=== PATIENT | male | born 1935 | race Caucasian/White ===

== ENCOUNTER → 2017-09-03 | Outpatient (CLI) | payer MEDICARE, OTHER | END | disposition home or self-care (01) | LOC: HKI 15:00 | DX: M16.11 Unilateral primary osteoarthritis, right hip (principal) | CPT/HCPCS: 73502 ==

== ENCOUNTER 2017-10-04 16:22 | Observation (INO) | payer MEDICARE, OTHER ==
[2017-10-04 16:57] LABS: ADD MAN DIFF? NO
[2017-10-04 17:04] LABS: WHITE BLOOD COUNT 8.3 10^3/ul (4.8-10.8)
[2017-10-04 17:04] LABS: BASOPHILS % 0.5 % (0.0-2.0); EOSINOPHILS % 0.5 % (0.0-7.0); HEMATOCRIT 43.2 % (42.0-52.0); HEMOGLOBIN 14.6 g/dl (14.0-18.0); LYMPHOCYTES # 1.7 10^3/ul (0.8-2.9); LYMPHOCYTES % 20.3 % (15.0-51.0); MEAN CORPUSCULAR HEMOGLOBIN 30.9 pg (29.0-33.0); MEAN CORPUSCULAR HGB CONC 33.8 g/dl (32.0-37.0); MEAN CORPUSCULAR VOLUME 91.5 fl (82.0-101.0); MEAN PLATELET VOLUME 9.6 fl (7.4-10.4); MONOCYTE # 0.7 10^3/ul (0.3-0.9); MONOCYTES % 8.4 % (0.0-11.0); NEUTROPHIL # 5.8 10^3/ul (1.6-7.5); NEUTROPHILS % 69.9 % (39.0-77.0); PLATELET COUNT 258 10^3/UL (140-415); RED BLOOD COUNT 4.72 10^6/ul (4.70-6.10); RED CELL DISTRIBUTION WIDTH 14.1 % (11.5-14.5)
[2017-10-04 17:16] LABS: INR 1.02; PROTIME 13.5 Sec (11.9-14.9); PT RATIO 1.1
[2017-10-04 17:17] LABS: PARTIAL THROMBOPLASTIN TIME 32.1 Sec (25.0-35.0)
[2017-10-04 17:33] LABS: ALANINE AMINOTRANSFERASE 30 IU/L (13-69); ALBUMIN 4.2 g/dl (3.3-4.9); ALKALINE PHOSPHATASE 71 IU/L (42-121); ANION GAP 15 (8-16); ASPARTATE AMINO TRANSFERASE 34 IU/L (15-46); BILIRUBIN,INDIRECT 0.5 mg/dl (0-1.1); BILIRUBIN,TOTAL 0.5 mg/dl (0.2-1.3); BLOOD UREA NITROGEN 24 mg/dl (7-20); CALCIUM 8.9 mg/dl (8.4-10.2); CARBON DIOXIDE 24 mmol/L (21-31); CHLORIDE 108 mmol/L (97-110); CREATININE 0.98 mg/dl (0.61-1.24); GLUCOSE 128 mg/dl (70-220); SODIUM 143 mmol/L (135-144)
[2017-10-04 17:43] LABS: TROPONIN-I < 0.012 ng/ml (0.00-0.12)
[2017-10-04] MEDS: DEXTROSE 5%-0.45% NACL 1,000 ML IV (21:37)
[2017-10-04] MEDS: ZOLPIDEM 5 MG TAB PO (23:06)
[2017-10-04] MEDS: ONDANSETRON 4 MG INJ IV (23:47)
[2017-10-05 05:17] LABS: WHITE BLOOD COUNT 6.3 10^3/ul (4.8-10.8)
[2017-10-05 05:17] LABS: ABNORMAL IP MESSAGE 1; HEMATOCRIT 34.3 % (42.0-52.0); HEMOGLOBIN 11.6 g/dl (14.0-18.0); MEAN CORPUSCULAR HEMOGLOBIN 31.1 pg (29.0-33.0); MEAN CORPUSCULAR HGB CONC 33.8 g/dl (32.0-37.0); MEAN PLATELET VOLUME 9.8 fl (7.4-10.4); PLATELET COUNT 226 10^3/UL (140-415); POSITIVE DIFF @See below; RED BLOOD COUNT 3.73 10^6/ul (4.70-6.10); RED CELL DISTRIBUTION WIDTH 13.9 % (11.5-14.5)
[2017-10-05 05:35] LABS: ADD MAN DIFF? YES
[2017-10-05 05:47] LABS: ANION GAP 14 (8-16); BLOOD UREA NITROGEN 22 mg/dl (7-20); CALCIUM 8.5 mg/dl (8.4-10.2); CARBON DIOXIDE 25 mmol/L (21-31); CHLORIDE 107 mmol/L (97-110); CREATININE 0.88 mg/dl (0.61-1.24); GLUCOSE 118 mg/dl (70-220); MAGNESIUM 2.1 mg/dl (1.7-2.5); POTASSIUM 4.2 mmol/L (3.5-5.1); SODIUM 142 mmol/L (135-144)
[2017-10-05 05:57] LABS: T4 (THYROXINE) 6.7 ug/dl (5.5-11.0)
[2017-10-05 06:10] LABS: THYROID STIMULATING HORMONE 0.617 MIU/L (0.465-4.680)
[2017-10-05 07:12] LABS: BASOPHILS % 0.5 % (0.0-2.0); LYMPHOCYTES % 25.7 % (15.0-51.0); MONOCYTES % 9.3 % (0.0-11.0)
[2017-10-05] MEDS: POLYETHYLENE GLYCOL 17 GM PACKET PO (08:10)
[2017-10-05 09:02] LABS: EOSINOPHILS # 0.1 10^3/ul (0.0-0.5); EOSINOPHILS % (M) 2 % (0.0-7.0); LYMPHOCYTES # 1.8 10^3/ul (0.8-2.9); LYMPHOCYTES #M 1.8 10^3/ul (0.8-2.9); LYMPHOCYTES % (M) 29 % (15-51); MONOCYTE # 0.4 10^3/ul (0.3-0.9); MONOCYTE #M 0.4 10^3/ul (0.3-0.9); MONOCYTES % (M) 7 % (0-11); SEGMENTED NEUTROPHILS (M) % 62 % (39-77)
[2017-10-05 09:03] LABS: PLATELET ESTIMATE NORMAL
[2017-10-05 17:09] LABS: ADD MAN DIFF? NO
[2017-10-05 17:12] LABS: BASOPHILS % 0.6 % (0.0-2.0); EOSINOPHILS # 0.1 10^3/ul (0.0-0.5); EOSINOPHILS % 1.1 % (0.0-7.0); HEMATOCRIT 33.2 % (42.0-52.0); HEMOGLOBIN 11.1 g/dl (14.0-18.0); LYMPHOCYTES # 1.8 10^3/ul (0.8-2.9); LYMPHOCYTES % 27.1 % (15.0-51.0); MEAN CORPUSCULAR HEMOGLOBIN 30.9 pg (29.0-33.0); MEAN CORPUSCULAR HGB CONC 33.4 g/dl (32.0-37.0); MEAN CORPUSCULAR VOLUME 92.5 fl (82.0-101.0); MEAN PLATELET VOLUME 9.7 fl (7.4-10.4); MONOCYTE # 0.7 10^3/ul (0.3-0.9); MONOCYTES % 10.5 % (0.0-11.0); NEUTROPHILS % 60.5 % (39.0-77.0); PLATELET COUNT 217 10^3/UL (140-415); RED BLOOD COUNT 3.59 10^6/ul (4.70-6.10); RED CELL DISTRIBUTION WIDTH 13.7 % (11.5-14.5)
[2017-10-05 17:12] LABS: WHITE BLOOD COUNT 6.6 10^3/ul (4.8-10.8)
[2017-10-05] MEDS: DEXTROSE 5%-0.45% NACL 1,000 ML IV (17:33)
[2017-10-05] MEDS: POLYETHYLENE GLYCOL 3350 119 GM POWDER PO (18:07)
[2017-10-05] MEDS: ZOLPIDEM 5 MG TAB PO (22:03)
[2017-10-06 05:51] LABS: ADD MAN DIFF? NO
[2017-10-06 05:55] LABS: ABNORMAL IP MESSAGE 1; BASOPHILS % 0.5 % (0.0-2.0); EOSINOPHILS # 0.5 10^3/ul (0.0-0.5); EOSINOPHILS % 8.4 % (0.0-7.0); HEMATOCRIT 30.5 % (42.0-52.0); HEMOGLOBIN 10.2 g/dl (14.0-18.0); LYMPHOCYTES # 1.7 10^3/ul (0.8-2.9); LYMPHOCYTES % 28.4 % (15.0-51.0); MEAN CORPUSCULAR HEMOGLOBIN 31.2 pg (29.0-33.0); MEAN CORPUSCULAR HGB CONC 33.4 g/dl (32.0-37.0); MEAN CORPUSCULAR VOLUME 93.3 fl (82.0-101.0); MONOCYTE # 0.6 10^3/ul (0.3-0.9); MONOCYTES % 10.9 % (0.0-11.0); NEUTROPHILS % 51.6 % (39.0-77.0); PLATELET COUNT 211 10^3/UL (140-415); POSITIVE DIFF @See below; RED BLOOD COUNT 3.27 10^6/ul (4.70-6.10); RED CELL DISTRIBUTION WIDTH 13.6 % (11.5-14.5)
[2017-10-06 05:55] LABS: WHITE BLOOD COUNT 5.8 10^3/ul (4.8-10.8)
[2017-10-06] MEDS: POLYETHYLENE GLYCOL 3350 119 GM POWDER PO (06:30)
[2017-10-06 06:54] LABS: ANION GAP 12 (8-16); BLOOD UREA NITROGEN 14 mg/dl (7-20); CALCIUM 8.1 mg/dl (8.4-10.2); CARBON DIOXIDE 26 mmol/L (21-31); CHLORIDE 110 mmol/L (97-110); CREATININE 0.84 mg/dl (0.61-1.24); GLUCOSE 92 mg/dl (70-220); POTASSIUM 3.8 mmol/L (3.5-5.1); SODIUM 144 mmol/L (135-144)
[2017-10-06] MEDS: POLYETHYLENE GLYCOL 17 GM PACKET PO (09:00)
[2017-10-06] MEDS: DEXTROSE 5%-0.45% NACL 1,000 ML IV (11:02)
[2017-10-06] MEDS: POTASSIUM CHLORIDE 40 MEQ in DEXTROSE 5%-0.45% NACL 1,000 ML IV (16:40)
[2017-10-06] MEDS: LIDOCAINE 2% (SDV) 5 ML INJ (17:29)
[2017-10-06] MEDS: PROPOFOL 40 ML (17:29)
[2017-10-06] MEDS: MIDAZOLAM 1 MG/ML 2 ML INJ (17:29)
[2017-10-06] MEDS: FLUMAZENIL 0.5 MG INJ (17:29)
[2017-10-06] MEDS: ZOLPIDEM 5 MG TAB PO (21:29)
[2017-10-07] MEDS: ACETAMINOPHEN 325 MG TAB PO (00:48)
[2017-10-07 05:48] LABS: ADD MAN DIFF? NO
[2017-10-07 05:53] LABS: BASOPHILS % 0.6 % (0.0-2.0); EOSINOPHILS # 0.1 10^3/ul (0.0-0.5); EOSINOPHILS % 2.4 % (0.0-7.0); HEMATOCRIT 28.1 % (42.0-52.0); HEMOGLOBIN 9.7 g/dl (14.0-18.0); LYMPHOCYTES # 1.5 10^3/ul (0.8-2.9); LYMPHOCYTES % 29.9 % (15.0-51.0); MEAN CORPUSCULAR HEMOGLOBIN 31.9 pg (29.0-33.0); MEAN CORPUSCULAR HGB CONC 34.5 g/dl (32.0-37.0); MEAN CORPUSCULAR VOLUME 92.4 fl (82.0-101.0); MEAN PLATELET VOLUME 10.1 fl (7.4-10.4); MONOCYTE # 0.7 10^3/ul (0.3-0.9); MONOCYTES % 13.2 % (0.0-11.0); NEUTROPHIL # 2.7 10^3/ul (1.6-7.5); NEUTROPHILS % 53.5 % (39.0-77.0); PLATELET COUNT 201 10^3/UL (140-415); RED BLOOD COUNT 3.04 10^6/ul (4.70-6.10); RED CELL DISTRIBUTION WIDTH 13.5 % (11.5-14.5)
[2017-10-07 06:12] LABS: ANION GAP 12 (8-16); BLOOD UREA NITROGEN 12 mg/dl (7-20); CALCIUM 8.5 mg/dl (8.4-10.2); CARBON DIOXIDE 27 mmol/L (21-31); CHLORIDE 110 mmol/L (97-110); CREATININE 0.84 mg/dl (0.61-1.24); GLUCOSE 86 mg/dl (70-220); SODIUM 145 mmol/L (135-144)
[2017-10-07 06:24] LABS: POTASSIUM 3.8 mmol/L (3.5-5.1)
[2017-10-07] MEDS: POLYETHYLENE GLYCOL 17 GM PACKET PO (08:49)
[2017-10-07] MEDS: POTASSIUM CHLORIDE (SR) 20 MEQ TAB PO (11:46)
== END 2017-10-07 11:50 | disposition home or self-care (01) ==
LOC: E/R 16:22 → MS1 17:51
DX: K92.2 Gastrointestinal hemorrhage, unspecified (principal); K64.8 Other hemorrhoids; K57.30 Diverticulosis of large intestine without perforation or abscess without bleeding; E78.5 Hyperlipidemia, unspecified; M54.12 Radiculopathy, cervical region; M16.0 Bilateral primary osteoarthritis of hip; Z87.820 Personal history of traumatic brain injury; Z85.46 Personal history of malignant neoplasm of prostate
CPT/HCPCS: 36415; 80048; 80053; 83735; 84436; 84443; 84484; 85025; 85610; 85730; 86850; 86900; 86901; 93005; 99217; 99285-25

== ENCOUNTER → 2017-11-05 | Outpatient (CLI) | payer MEDICARE, OTHER | END | disposition home or self-care (01) | LOC: HKI 13:28 | DX: Z47.1 Aftercare following joint replacement surgery (principal); Z01.818 Encounter for other preprocedural examination; Z96.641 Presence of right artificial hip joint | CPT/HCPCS: G0463 ==

== ENCOUNTER → 2017-11-05 | Outpatient (CLI) | payer MEDICARE, OTHER ==
[2017-11-05 15:16] LABS: ADD MAN DIFF? NO
[2017-11-05 15:19] LABS: BASOPHILS % 0.5 % (0.0-2.0); EOSINOPHILS # 0.1 10^3/ul (0.0-0.5); EOSINOPHILS % 1.5 % (0.0-7.0); HEMATOCRIT 44.2 % (42.0-52.0); HEMOGLOBIN 15.1 g/dl (14.0-18.0); LYMPHOCYTES # 2.6 10^3/ul (0.8-2.9); LYMPHOCYTES % 36.1 % (15.0-51.0); MEAN CORPUSCULAR HEMOGLOBIN 31.9 pg (29.0-33.0); MEAN CORPUSCULAR HGB CONC 34.2 g/dl (32.0-37.0); MEAN CORPUSCULAR VOLUME 93.2 fl (82.0-101.0); MEAN PLATELET VOLUME 9.2 fl (7.4-10.4); MONOCYTE # 0.7 10^3/ul (0.3-0.9); MONOCYTES % 9.5 % (0.0-11.0); NEUTROPHIL # 3.8 10^3/ul (1.6-7.5); NEUTROPHILS % 52.3 % (39.0-77.0); PLATELET COUNT 231 10^3/UL (140-415); RED BLOOD COUNT 4.74 10^6/ul (4.70-6.10); RED CELL DISTRIBUTION WIDTH 13.8 % (11.5-14.5)
[2017-11-05 15:19] LABS: WHITE BLOOD COUNT 7.3 10^3/ul (4.8-10.8)
[2017-11-05 15:21] LABS: ADD UMIC NO; UR ASCORBIC ACID 40 mg/dL (NEGATIVE); UR BILIRUBIN (Dip) NEGATIVE (NEGATIVE); UR BLOOD (Dip) NEGATIVE (NEGATIVE); UR CLARITY CLEAR (CLEAR); UR COLOR YELLOW (YELLOW); UR GLUCOSE (Dip) NEGATIVE (NEGATIVE); UR KETONES (Dip) NEGATIVE (NEGATIVE); UR LEUKOCYTE ESTERASE (Dip) NEGATIVE Leu/ul (NEGATIVE); UR NITRITE (Dip) NEGATIVE (NEGATIVE); UR SPECIFIC GRAVITY (Dip) 1.023 (1.003-1.030); UR TOTAL PROTEIN (Dip) NEGATIVE (NEGATIVE); UR UROBILINOGEN (Dip) 2+ mg/dL (NEGATIVE)
[2017-11-05 15:36] LABS: ALANINE AMINOTRANSFERASE 25 IU/L (13-69); ALBUMIN 4.6 g/dl (3.3-4.9); ALBUMIN/GLOBULIN RATIO 1.53; ALKALINE PHOSPHATASE 61 IU/L (42-121); ANION GAP 14 (8-16); ASPARTATE AMINO TRANSFERASE 22 IU/L (15-46); BILIRUBIN,INDIRECT 0.6 mg/dl (0-1.1); BILIRUBIN,TOTAL 0.6 mg/dl (0.2-1.3); BLOOD UREA NITROGEN 16 mg/dl (7-20); CALCIUM 9.5 mg/dl (8.4-10.2); CARBON DIOXIDE 29 mmol/L (21-31); CHLORIDE 107 mmol/L (97-110); CREATININE 0.97 mg/dl (0.61-1.24); GLUCOSE 96 mg/dl (70-220); POTASSIUM 4.4 mmol/L (3.5-5.1); SODIUM 146 mmol/L (135-144); TOTAL PROTEIN 7.6 g/dl (6.1-8.1)
[2017-11-05 15:39] LABS: INR 0.92; PROTIME 12.4 Sec (11.9-14.9)
[2017-11-05 15:40] LABS: PARTIAL THROMBOPLASTIN TIME 31.5 Sec (25.0-35.0)
== END | disposition home or self-care (01) ==
LOC: LAB 14:37
DX: D64.9 Anemia, unspecified (principal); N39.0 Urinary tract infection, site not specified
CPT/HCPCS: 71046; 80053; 81003; 85025; 85610; 85730

== ENCOUNTER 2017-11-11 05:32 | Inpatient (IN) | payer MEDICARE, OTHER ==
[2017-11-11] MEDS: LANSOPRAZOLE 30 MG CAP PO (06:18)
[2017-11-11] MEDS: ACETAMINOPHEN 1000MG/100ML IV 100 ML IVPB (06:26)
[2017-11-11] MEDS ORDERED: POLYMYXIN B 500000 UNIT INJ (06:53)
[2017-11-11] MEDS: CEFAZOLIN 2 GM/50 ML (PMX) 50 ML (FOR WT < 120 KG) IVPB (07:00)
[2017-11-11] MEDS: ONDANSETRON 4 MG INJ IV ×4 (07:00→20:51)
[2017-11-11] MEDS: DEXAMETHASONE 4 MG/ML 1 ML INJ IV (07:00)
[2017-11-11] MEDS ORDERED: NEOSTIGMINE 3 MG/3 ML SYRINGE (07:08)
[2017-11-11] MEDS ORDERED: FENTAnyl 50 MCG/ML VIAL (07:08)
[2017-11-11] MEDS ORDERED: DEXAMETHASONE 4 MG/ML 1 ML INJ (07:08)
[2017-11-11] MEDS ORDERED: CEFAZOLIN 1 GM INJ (07:08)
[2017-11-11] MEDS ORDERED: GLYCOPYRROLATE 0.4 MG INJ (07:08)
[2017-11-11] MEDS ORDERED: PROPOFOL 20 ML (07:08)
[2017-11-11] MEDS ORDERED: ONDANSETRON 4 MG INJ (07:08)
[2017-11-11] MEDS ORDERED: ROCURONIUM 50 MG INJ (07:08)
[2017-11-11] MEDS ORDERED: MIDAZOLAM 1 MG/ML 2 ML INJ (07:08)
[2017-11-11] MEDS ORDERED: BUPIVACAINE 0.75%/DEXT (SPINAL) 2 ML INJ (07:09)
[2017-11-11] MEDS: TRANEXAMIC ACID 1,000 MG in D5W 100 ML AT INCISION X1 IVPB (08:22)
[2017-11-11] MEDS: BACITRACIN 50000 UNITS INJ (08:30)
[2017-11-11] MEDS: POLYMYXIN B 500000 UNIT INJ IRR (08:30)
[2017-11-11] MEDS ORDERED: MIDAZOLAM 1 MG/ML 2 ML INJ IV (09:00)
[2017-11-11] MEDS ORDERED: MEPERIDINE 25 MG INJ IV (09:00)
[2017-11-11] MEDS ORDERED: HYDROmorphONE (0.2 MG/ML) 10ML SYG IV ×3 (09:00)
[2017-11-11] MEDS ORDERED: TRIMETHOBENZAMIDE 100 MG/ML VIAL IM ×2 (09:00→09:30)
[2017-11-11] MEDS ORDERED: EPHEDrine SULFATE 50 MG/5 ML SYG IV (09:00)
[2017-11-11] MEDS ORDERED: IPRATROPIUM (NEB) 0.5 MG/2.5 ML AMP HHN (09:00)
[2017-11-11] MEDS ORDERED: hydrALAzine 20 MG INJ IV (09:00)
[2017-11-11] MEDS ORDERED: ALBUTEROL 0.083% (NEB) 2.5 MG/3 ML AMP HHN (09:00)
[2017-11-11] MEDS ORDERED: OXYCODONE/ACETAMINOPHEN (5/325) TAB PO ×2 (09:00)
[2017-11-11] MEDS ORDERED: ONDANSETRON 4 MG INJ IV (09:00)
[2017-11-11] MEDS ORDERED: FENTAnyl 50 MCG/ML VIAL IV ×3 (09:00)
[2017-11-11] MEDS ORDERED: DIPHENHYDRAMINE 50 MG INJ IV ×2 (09:00→09:30)
[2017-11-11] MEDS ORDERED: LABETALOL HCL 20MG INJ IV (09:00)
[2017-11-11] MEDS: SOD CHLORIDE 0.9% 1,000 ML IV ×2 (09:20→21:50)
[2017-11-11] MEDS: TRANEXAMIC ACID 1,000 MG in D5W 100 ML AT CLOSURE X1 IVPB (09:27)
[2017-11-11] MEDS ORDERED: oxyCODONE 5 MG TAB PO ×2 (09:30)
[2017-11-11] MEDS ORDERED: NACL 0.9% 3 ML SYG IV (09:30)
[2017-11-11] MEDS ORDERED: NALOXONE (0.4 MG/ML) INJ IV (09:30)
[2017-11-11] MEDS ORDERED: SENNA/DOCUSATE NA (8.6MG/50MG) TAB PO (09:30)
[2017-11-11] MEDS ORDERED: NA PHOSPHATE/BIPHOS 133 ML ENEMA PR (09:30)
[2017-11-11] MEDS ORDERED: ZOLPIDEM 5 MG TAB PO (09:30)
[2017-11-11] MEDS ORDERED: MAGNESIUM HYDROXIDE 30ML CUP PO (09:30)
[2017-11-11] MEDS ORDERED: BISACODYL 10 MG SUPP PR (09:30)
[2017-11-11] MEDS: CEFAZOLIN 1 GM/50 ML (PMX) 50 ML IVPB ×2 (10:27→17:22)
[2017-11-11] MEDS: DOCUSATE SODIUM 100 MG CAP PO (10:34)
[2017-11-11] MEDS: ASPIRIN (EC) 325 MG TAB PO (10:34)
[2017-11-11] MEDS: LACTATED RINGER'S 1,000 ML IV (14:55)
[2017-11-11] MEDS: KETOROLAC 15 MG INJ IV (17:22)
[2017-11-11] MEDS: GABAPENTIN 100 MG CAP PO (20:51)
[2017-11-11] MEDS: ZOLPIDEM 5 MG TAB PO ×2 (21:46→22:22)
[2017-11-11] MEDS: CEPASTAT LOZENGE MT (22:18)
[2017-11-12] MEDS: oxyCODONE 5 MG TAB PO ×2 (00:47→12:34)
[2017-11-12] MEDS: CEFAZOLIN 1 GM/50 ML (PMX) 50 ML IVPB (00:59)
[2017-11-12] MEDS: ONDANSETRON 4 MG INJ IV (02:42)
[2017-11-12] MEDS: KETOROLAC 15 MG INJ IV (02:42)
[2017-11-12] MEDS ORDERED: PANTOPRAZOLE (EC) 40 MG TAB PO (06:00)
[2017-11-12] MEDS: PANTOPRAZOLE (EC) 40 MG TAB PO (06:32)
[2017-11-12] MEDS: BETHANECHOL 25 MG TAB PO (06:32)
[2017-11-12] MEDS: LACTATED RINGER'S 1,000 ML IV (07:00)
[2017-11-12 08:09] LABS: ADD MAN DIFF? NO
[2017-11-12 08:13] LABS: WHITE BLOOD COUNT 16.7 10^3/ul (4.8-10.8)
[2017-11-12 08:13] LABS: ABNORMAL IP MESSAGE 1; BASOPHILS % 0.1 % (0.0-2.0); HEMATOCRIT 33.2 % (42.0-52.0); HEMOGLOBIN 11.1 g/dl (14.0-18.0); LYMPHOCYTES # 1.6 10^3/ul (0.8-2.9); LYMPHOCYTES % 9.6 % (15.0-51.0); MEAN CORPUSCULAR HEMOGLOBIN 31.2 pg (29.0-33.0); MEAN CORPUSCULAR HGB CONC 33.4 g/dl (32.0-37.0); MEAN CORPUSCULAR VOLUME 93.3 fl (82.0-101.0); MEAN PLATELET VOLUME 9.6 fl (7.4-10.4); MONOCYTE # 1.7 10^3/ul (0.3-0.9); MONOCYTES % 9.9 % (0.0-11.0); NEUTROPHIL # 13.3 10^3/ul (1.6-7.5); NEUTROPHILS % 79.9 % (39.0-77.0); PLATELET COUNT 209 10^3/UL (140-415); POSITIVE DIFF @See below; RED BLOOD COUNT 3.56 10^6/ul (4.70-6.10); RED CELL DISTRIBUTION WIDTH 13.4 % (11.5-14.5)
[2017-11-12 08:28] LABS: ANION GAP 12 (8-16); BLOOD UREA NITROGEN 15 mg/dl (7-20); CALCIUM 8.5 mg/dl (8.4-10.2); CARBON DIOXIDE 26 mmol/L (21-31); CHLORIDE 108 mmol/L (97-110); CREATININE 0.93 mg/dl (0.61-1.24); GLUCOSE 130 mg/dl (70-220); POTASSIUM 4.2 mmol/L (3.5-5.1); SODIUM 142 mmol/L (135-144)
[2017-11-12] MEDS: DOCUSATE SODIUM 100 MG CAP PO (09:00)
[2017-11-12] MEDS ORDERED: CELECOXIB 200 MG CAP PO (09:00)
[2017-11-12 09:45] LABS: ADD UMIC YES; UR ASCORBIC ACID NEGATIVE (NEGATIVE); UR BILIRUBIN (Dip) NEGATIVE (NEGATIVE); UR BLOOD (Dip) 1+ mg/dL (NEGATIVE); UR CLARITY CLEAR (CLEAR); UR COLOR YELLOW (YELLOW); UR GLUCOSE (Dip) NEGATIVE (NEGATIVE); UR KETONES (Dip) NEGATIVE (NEGATIVE); UR LEUKOCYTE ESTERASE (Dip) NEGATIVE Leu/ul (NEGATIVE); UR NITRITE (Dip) NEGATIVE (NEGATIVE); UR RBC 33 /HPF (0-5); UR SPECIFIC GRAVITY (Dip) 1.016 (1.003-1.030); UR TOTAL PROTEIN (Dip) NEGATIVE (NEGATIVE); UR UROBILINOGEN (Dip) NEGATIVE (NEGATIVE); UR WBC 2 /HPF (0-5)
[2017-11-12] MEDS: FERROUS FUMARATE (SR) TAB PO (09:53)
[2017-11-12] MEDS: ASPIRIN (EC) 325 MG TAB PO (09:53)
[2017-11-12] MEDS: GABAPENTIN 100 MG CAP PO (09:53)
[2017-11-12] MEDS: SOD CHLORIDE 0.9% 1,000 ML IV (10:20)
[2017-11-12] MEDS: CEFTRIAXONE 2 GM/50 ML (PMX) 50 ML IVPB (10:31)
[2017-11-12] MEDS: CELECOXIB 100 MG CAP PO (12:34)
[2017-11-12 14:55] LABS: ADD MAN DIFF? NO
[2017-11-12 14:58] LABS: BASOPHILS % 0.1 % (0.0-2.0); EOSINOPHILS % 0.1 % (0.0-7.0); HEMATOCRIT 35.7 % (42.0-52.0); HEMOGLOBIN 11.9 g/dl (14.0-18.0); LYMPHOCYTES % 13.4 % (15.0-51.0); MEAN CORPUSCULAR HEMOGLOBIN 31.2 pg (29.0-33.0); MEAN CORPUSCULAR HGB CONC 33.3 g/dl (32.0-37.0); MEAN CORPUSCULAR VOLUME 93.5 fl (82.0-101.0); MEAN PLATELET VOLUME 9.7 fl (7.4-10.4); MONOCYTE # 1.5 10^3/ul (0.3-0.9); MONOCYTES % 9.6 % (0.0-11.0); NEUTROPHIL # 11.7 10^3/ul (1.6-7.5); NEUTROPHILS % 76.3 % (39.0-77.0); PLATELET COUNT 219 10^3/UL (140-415); RED BLOOD COUNT 3.82 10^6/ul (4.70-6.10); RED CELL DISTRIBUTION WIDTH 13.8 % (11.5-14.5)
[2017-11-12 14:58] LABS: WHITE BLOOD COUNT 15.3 10^3/ul (4.8-10.8)
== END 2017-11-12 15:50 | disposition home health service (06) | DRG 470 ==
LOC: REC 05:32 → MS1 10:25
PROC: 0SR904A Replacement of Right Hip Joint with Ceramic on Polyethylene Synthetic Substitute, Uncemented, Open Approach (ICD-10-PCS; principal; 2017-11-11 07:30)
DX: M16.11 Unilateral primary osteoarthritis, right hip (principal); R05 Cough; J02.9 Acute pharyngitis, unspecified
CPT/HCPCS: 71045; 72170; 80048; 81001; 85025; 86850; 86900; 86901; 87081; 87086; 88304; 88311; 97110; 97116; 97162; 97166; 97530

== ENCOUNTER → 2017-11-22 | Outpatient (CLI) | payer MEDICARE, OTHER | END | disposition home or self-care (01) | LOC: HKI 13:26 | DX: Z09 Encounter for follow-up examination after completed treatment for conditions other than malignant neoplasm (principal); Z96.641 Presence of right artificial hip joint | CPT/HCPCS: 73502 ==

== ENCOUNTER → 2017-12-20 | Outpatient (CLI) | payer MEDICARE, OTHER | END | disposition home or self-care (01) | LOC: HKI 10:50 | DX: Z09 Encounter for follow-up examination after completed treatment for conditions other than malignant neoplasm (principal); Z96.641 Presence of right artificial hip joint | CPT/HCPCS: 73502 ==

== ENCOUNTER → 2018-01-31 | Outpatient (CLI) | payer MEDICARE, OTHER | END | disposition home or self-care (01) | LOC: HKI 10:42 | DX: Z09 Encounter for follow-up examination after completed treatment for conditions other than malignant neoplasm (principal); Z96.641 Presence of right artificial hip joint | CPT/HCPCS: 73502 ==

== ENCOUNTER 2018-04-18 11:26 | Observation (INO) | payer MEDICARE, OTHER ==
[2018-04-18 12:02] LABS: ADD MAN DIFF? NO
[2018-04-18 12:09] LABS: BASOPHIL # 0.1 10^3/ul (0.0-0.1); BASOPHILS % 0.7 % (0.0-2.0); EOSINOPHILS # 0.1 10^3/ul (0.0-0.5); EOSINOPHILS % 1.5 % (0.0-7.0); HEMATOCRIT 48.8 % (42.0-52.0); HEMOGLOBIN 16.4 g/dl (14.0-18.0); LYMPHOCYTES # 1.5 10^3/ul (0.8-2.9); LYMPHOCYTES % 22.6 % (15.0-51.0); MEAN CORPUSCULAR HEMOGLOBIN 29.8 pg (29.0-33.0); MEAN CORPUSCULAR HGB CONC 33.6 g/dl (32.0-37.0); MEAN CORPUSCULAR VOLUME 88.7 fl (82.0-101.0); MEAN PLATELET VOLUME 9.4 fl (7.4-10.4); MONOCYTE # 0.9 10^3/ul (0.3-0.9); MONOCYTES % 13.5 % (0.0-11.0); NEUTROPHIL # 4.2 10^3/ul (1.6-7.5); NEUTROPHILS % 61.4 % (39.0-77.0); PLATELET COUNT 226 10^3/UL (140-415); RED CELL DISTRIBUTION WIDTH 16.6 % (11.5-14.5)
[2018-04-18 12:09] LABS: WHITE BLOOD COUNT 6.8 10^3/ul (4.8-10.8)
[2018-04-18 12:28] LABS: INR 0.98; PROTIME 13.1 Sec (11.9-14.9)
[2018-04-18 12:34] LABS: ALANINE AMINOTRANSFERASE 23 IU/L (13-69); ALBUMIN/GLOBULIN RATIO 1.14; ALKALINE PHOSPHATASE 65 IU/L (42-121); ANION GAP 17 (8-16); ASPARTATE AMINO TRANSFERASE 35 IU/L (15-46); BILIRUBIN,INDIRECT 1.8 mg/dl (0-1.1); BILIRUBIN,TOTAL 1.8 mg/dl (0.2-1.3); BLOOD UREA NITROGEN 17 mg/dl (7-20); CALCIUM 9.2 mg/dl (8.4-10.2); CARBON DIOXIDE 26 mmol/L (21-31); CHLORIDE 105 mmol/L (97-110); CREATININE 1.01 mg/dl (0.61-1.24); GLUCOSE 93 mg/dl (70-220); POTASSIUM 3.9 mmol/L (3.5-5.1); SODIUM 144 mmol/L (135-144); TOTAL PROTEIN 7.5 g/dl (6.1-8.1)
[2018-04-18 12:37] LABS: URINE BLOOD (Dip) POC Trace-lysed (NEGATIVE); URINE GLUCOSE (Dip) POC Negative (NEGATIVE); URINE KETONES (Dip) POC 2+ (NEGATIVE); URINE LEUKOCYTE EST (Dip) POC Negative (NEGATIVE); URINE NITRITE (Dip) POC Negative (NEGATIVE); URINE TOTAL PROTEIN POC Trace (NEGATIVE)
[2018-04-18 12:37] LABS: URINE PH (Dip) POC 5.5 (5.0-8.5)
[2018-04-18 12:47] LABS: B-TYPE NATRIURETIC PEPTIDE 25 PG/ML (0-450); TROPONIN-I < 0.012 ng/ml (0.000-0.120)
[2018-04-18] MEDS: SOD CHLORIDE 0.9% 500 ML IV (14:22)
[2018-04-18] MEDS: DEXTROSE 5%-0.45% NACL 1,000 ML IV (16:06)
[2018-04-18] MEDS: ZOLPIDEM 5 MG TAB PO (21:20)
[2018-04-18] MEDS: VALACYCLOVIR 500 MG TAB PO (21:20)
[2018-04-18] MEDS: ATORVASTATIN 10 MG TAB PO (21:20)
[2018-04-19] MEDS: ACETAMINOPHEN 500 MG TAB PO ×2 (02:12→19:49)
[2018-04-19] MEDS: DEXTROSE 5%-0.45% NACL 1,000 ML IV ×2 (04:50→12:40)
[2018-04-19 05:52] LABS: ADD MAN DIFF? NO
[2018-04-19 05:56] LABS: WHITE BLOOD COUNT 7.1 10^3/ul (4.8-10.8)
[2018-04-19 05:56] LABS: BASOPHIL # 0.1 10^3/ul (0.0-0.1); BASOPHILS % 0.7 % (0.0-2.0); EOSINOPHILS # 0.1 10^3/ul (0.0-0.5); EOSINOPHILS % 1.5 % (0.0-7.0); HEMATOCRIT 45.9 % (42.0-52.0); HEMOGLOBIN 15.6 g/dl (14.0-18.0); LYMPHOCYTES # 1.5 10^3/ul (0.8-2.9); LYMPHOCYTES % 20.4 % (15.0-51.0); MEAN CORPUSCULAR HEMOGLOBIN 29.4 pg (29.0-33.0); MEAN CORPUSCULAR VOLUME 86.4 fl (82.0-101.0); MONOCYTES % 13.3 % (0.0-11.0); NEUTROPHIL # 4.5 10^3/ul (1.6-7.5); NEUTROPHILS % 63.7 % (39.0-77.0); PLATELET COUNT 225 10^3/UL (140-415); RED BLOOD COUNT 5.31 10^6/ul (4.70-6.10); RED CELL DISTRIBUTION WIDTH 16.3 % (11.5-14.5)
[2018-04-19 06:14] LABS: ALANINE AMINOTRANSFERASE 29 IU/L (13-69); ALBUMIN 3.6 g/dl (3.3-4.9); ALBUMIN/GLOBULIN RATIO 1.12; ALKALINE PHOSPHATASE 55 IU/L (42-121); ANION GAP 12 (8-16); ASPARTATE AMINO TRANSFERASE 34 IU/L (15-46); BILIRUBIN,INDIRECT 1.5 mg/dl (0-1.1); BILIRUBIN,TOTAL 1.5 mg/dl (0.2-1.3); BLOOD UREA NITROGEN 15 mg/dl (7-20); CARBON DIOXIDE 24 mmol/L (21-31); CHLORIDE 107 mmol/L (97-110); CREATININE 0.96 mg/dl (0.61-1.24); GLUCOSE 96 mg/dl (70-220); MAGNESIUM 2.1 mg/dl (1.7-2.5); POTASSIUM 4.1 mmol/L (3.5-5.1); SODIUM 139 mmol/L (135-144); TOTAL PROTEIN 6.8 g/dl (6.1-8.1)
[2018-04-19] MEDS: MELOXICAM 7.5 MG TAB PO (09:41)
[2018-04-19] MEDS: VALACYCLOVIR 500 MG TAB PO ×3 (09:41→20:08)
[2018-04-19] MEDS: MULTIVITAMINS THERAPEUTIC TAB PO (09:42)
[2018-04-19] MEDS: ENOXAPARIN 30 MG/0.3 ML SYG SC (09:46)
[2018-04-19] MEDS: LORAZEPAM 0.5 MG TAB PO (20:09)
[2018-04-19] MEDS: ZOLPIDEM 5 MG TAB PO (20:09)
[2018-04-19] MEDS: ATORVASTATIN 10 MG TAB PO (20:09)
[2018-04-20] MEDS: LORAZEPAM 2 MG INJ IV (01:19)
[2018-04-20 06:04] LABS: ALANINE AMINOTRANSFERASE 18 IU/L (13-69); ALBUMIN 3.9 g/dl (3.3-4.9); ALBUMIN/GLOBULIN RATIO 1.25; ALKALINE PHOSPHATASE 57 IU/L (42-121); ANION GAP 12 (8-16); ASPARTATE AMINO TRANSFERASE 35 IU/L (15-46); BILIRUBIN,INDIRECT 1.8 mg/dl (0-1.1); BILIRUBIN,TOTAL 1.8 mg/dl (0.2-1.3); BLOOD UREA NITROGEN 15 mg/dl (7-20); CALCIUM 8.9 mg/dl (8.4-10.2); CARBON DIOXIDE 24 mmol/L (21-31); CHLORIDE 108 mmol/L (97-110); CREATININE 0.95 mg/dl (0.61-1.24); GLUCOSE 93 mg/dl (70-220); POTASSIUM 3.8 mmol/L (3.5-5.1); SODIUM 140 mmol/L (135-144)
[2018-04-20] MEDS: MULTIVITAMINS THERAPEUTIC TAB PO (09:15)
[2018-04-20] MEDS: MELOXICAM 7.5 MG TAB PO (09:15)
[2018-04-20] MEDS: VALACYCLOVIR 500 MG TAB PO ×3 (09:15→21:47)
[2018-04-20] MEDS: ENOXAPARIN 30 MG/0.3 ML SYG SC (09:23)
[2018-04-20] MEDS: DEXTROSE 5%-0.45% NACL 1,000 ML IV ×2 (11:17→20:50)
[2018-04-20] MEDS: ATORVASTATIN 10 MG TAB PO (21:46)
[2018-04-20] MEDS: traZODone 50 MG TAB PO (21:46)
[2018-04-21 05:42] LABS: ADD MAN DIFF? NO
[2018-04-21 05:59] LABS: BASOPHILS % 0.6 % (0.0-2.0); EOSINOPHILS # 0.1 10^3/ul (0.0-0.5); EOSINOPHILS % 2.3 % (0.0-7.0); HEMATOCRIT 44.9 % (42.0-52.0); HEMOGLOBIN 15.1 g/dl (14.0-18.0); LYMPHOCYTES # 1.7 10^3/ul (0.8-2.9); MEAN CORPUSCULAR HEMOGLOBIN 29.5 pg (29.0-33.0); MEAN CORPUSCULAR HGB CONC 33.6 g/dl (32.0-37.0); MEAN CORPUSCULAR VOLUME 87.9 fl (82.0-101.0); MEAN PLATELET VOLUME 9.9 fl (7.4-10.4); MONOCYTE # 0.7 10^3/ul (0.3-0.9); MONOCYTES % 13.3 % (0.0-11.0); NEUTROPHIL # 2.7 10^3/ul (1.6-7.5); NEUTROPHILS % 51.6 % (39.0-77.0); PLATELET COUNT 239 10^3/UL (140-415); RED BLOOD COUNT 5.11 10^6/ul (4.70-6.10); RED CELL DISTRIBUTION WIDTH 15.7 % (11.5-14.5)
[2018-04-21 05:59] LABS: WHITE BLOOD COUNT 5.2 10^3/ul (4.8-10.8)
[2018-04-21 06:56] LABS: ALANINE AMINOTRANSFERASE 27 IU/L (13-69); ALBUMIN 3.5 g/dl (3.3-4.9); ALBUMIN/GLOBULIN RATIO 1.16; ALKALINE PHOSPHATASE 50 IU/L (42-121); ANION GAP 12 (8-16); ASPARTATE AMINO TRANSFERASE 29 IU/L (15-46); BILIRUBIN,INDIRECT 1.6 mg/dl (0-1.1); BILIRUBIN,TOTAL 1.6 mg/dl (0.2-1.3); BLOOD UREA NITROGEN 13 mg/dl (7-20); CALCIUM 8.8 mg/dl (8.4-10.2); CARBON DIOXIDE 24 mmol/L (21-31); CHLORIDE 107 mmol/L (97-110); CREATININE 0.88 mg/dl (0.61-1.24); GLUCOSE 100 mg/dl (70-220); POTASSIUM 3.7 mmol/L (3.5-5.1); SODIUM 139 mmol/L (135-144); TOTAL PROTEIN 6.5 g/dl (6.1-8.1)
[2018-04-21] MEDS: VALACYCLOVIR 500 MG TAB PO ×2 (09:49→13:12)
[2018-04-21] MEDS: MELOXICAM 7.5 MG TAB PO (09:50)
[2018-04-21] MEDS: MULTIVITAMINS THERAPEUTIC TAB PO (09:50)
[2018-04-21] MEDS: ENOXAPARIN 30 MG/0.3 ML SYG SC (09:55)
[2018-04-21] MEDS: DEXTROSE 5%-0.45% NACL 1,000 ML IV (11:41)
[2018-04-21 22:58] LABS: VARICELLA-ZOSTER VIRUS AB IgM 0.14
[2018-04-22 11:56] LABS: VARICELLA-ZOSTER VIRUS AB IgG >4000.00 INDEX (<= 0.90)
== END 2018-04-21 15:15 | disposition home health service (06) ==
LOC: MS1 04-19 22:45 → E/R 11:26 → PP2 13:16 → MS1 20:23
DX: L03.317 Cellulitis of buttock (principal); B02.9 Zoster without complications; E86.0 Dehydration; E78.5 Hyperlipidemia, unspecified; F17.200 Nicotine dependence, unspecified, uncomplicated; Z85.46 Personal history of malignant neoplasm of prostate
CPT/HCPCS: 36415; 71045; 80053; 81003; 83735; 83880; 84484; 85025; 85610; 85730; 87086; 87252; 93005; 97116; 97161; 97530; 99285-25; G0378

== ENCOUNTER 2018-11-04 18:10 | Emergency (ER) | payer MEDICARE, OTHER ==
[2018-11-04 18:50] LABS: ADD MAN DIFF? NO
[2018-11-04] MEDS: SOD CHLORIDE 0.9% 500 ML IV (18:50)
[2018-11-04] MEDS: LORAZEPAM 2 MG INJ IV (18:51)
[2018-11-04 18:55] LABS: WHITE BLOOD COUNT 10.9 10^3/ul (4.8-10.8)
[2018-11-04 18:55] LABS: BASOPHILS % 0.4 % (0.0-2.0); EOSINOPHILS % 0.1 % (0.0-7.0); HEMATOCRIT 48.8 % (42.0-52.0); HEMOGLOBIN 16.2 g/dl (14.0-18.0); LYMPHOCYTES # 0.8 10^3/ul (0.8-2.9); LYMPHOCYTES % 7.5 % (15.0-51.0); MEAN CORPUSCULAR HEMOGLOBIN 30.6 pg (29.0-33.0); MEAN CORPUSCULAR HGB CONC 33.2 g/dl (32.0-37.0); MEAN CORPUSCULAR VOLUME 92.1 fl (82.0-101.0); MEAN PLATELET VOLUME 9.4 fl (7.4-10.4); MONOCYTE # 0.7 10^3/ul (0.3-0.9); MONOCYTES % 6.7 % (0.0-11.0); NEUTROPHIL # 9.2 10^3/ul (1.6-7.5); NEUTROPHILS % 84.8 % (39.0-77.0); PLATELET COUNT 279 10^3/UL (140-415); RED CELL DISTRIBUTION WIDTH 13.6 % (11.5-14.5)
[2018-11-04 19:11] LABS: ANION GAP 11 (5-13); BLOOD UREA NITROGEN 10 mg/dl (7-20); CALCIUM 9.9 mg/dl (8.4-10.2); CARBON DIOXIDE 29 mmol/L (21-31); CHLORIDE 102 mmol/L (97-110); CREATININE 1.03 mg/dl (0.61-1.24); GLUCOSE 121 mg/dl (70-220); POTASSIUM 4.2 mmol/L (3.5-5.1); SODIUM 142 mmol/L (135-144)
[2018-11-04] MEDS: LORAZEPAM 0.5 MG TAB PO (19:15)
[2018-11-04 19:23] LABS: TROPONIN-I 0.016 ng/ml (0.000-0.120)
== END 2018-11-04 21:46 | disposition home or self-care (01) ==
LOC: E/R 18:10
DX: R00.0 Tachycardia, unspecified (principal); T44.8X5A Adverse effect of centrally-acting and adrenergic-neuron-blocking agents, initial encounter; Z85.46 Personal history of malignant neoplasm of prostate; Z96.649 Presence of unspecified artificial hip joint
CPT/HCPCS: 36415; 80048; 84484; 85025; 93005; 96374; 99284-25